=== PATIENT | female | born 1980 | race Caucasian/White ===

== ENCOUNTER 2019-06-15 00:35 | Emergency (ER) | payer OTHER ==
[~2019-06-15] VITALS: Ht 165.1 cm; Wt 54.5 kg
[2019-06-15 00:37] VITALS: BP 140/79
[2019-06-15] MEDS ORDERED: LIDOcaine Viscous 15ml cup TP ONE (00:40)
[2019-06-15] MEDS ORDERED: HYDR28CR14 TOP (00:53)
== END 2019-06-15 01:06 | disposition home or self-care (01) ==
LOC: ER 00:36
DX: Z77.098 Contact with and (suspected) exposure to other hazardous, chiefly nonmedicinal, chemicals (principal); H57.10 Ocular pain, unspecified eye; R51 Headache
CPT/HCPCS: 99283